=== PATIENT | male | born 1985 | race Two or more races ===

== ENCOUNTER 2019-04-13 07:38 | Observation (INO) | payer OTHER, MEDICAID ==
[~2019-04-13 07:38] MED LIST: GLYCOPYRROLATE 1 MG/5 ML VIAL ONE; ONDANSETRON HCL INJ/PF 4 MG/2 ML SDV ONE
[2019-04-13] MEDS ORDERED: ONDANSETRON HCL INJ/PF 4 MG/2 ML SDV IV ONE ×2 (09:42→12:29)
[2019-04-13] MEDS ORDERED: NORMAL SALINE 1000 ML 1,000 ML IV ONE (09:42)
[2019-04-13] MEDS ORDERED: MORPHINE SULFATE 10 MG/ML INJ IV ONE ×2 (09:42→12:29)
--- NOTE | 2019-04-13 09:53 | ER Document Report ---
Entered by KATHY HINKLE SCRIBE 04/13/19 0942 Acting as scribe for:PAVAN DAVIS MD ED Skin Rash/Insect Bite/Abscs - General Chief Complaint: Abscess Stated Complaint: BUTTOCKS/LEG PAIN Time Seen by Provider: 04/13/19 09:26 Primary Care Provider: BRODY RODRÍGUEZ FNP-C [Primary Care Provider] - Follow up as needed Mode of Arrival: Ambulatory Information source: Patient Notes: Patient is a 33-year-old male who presents to the emergency department today with complaints of pain around his rectum. Patient was seen by a local urgent care x3 days ago and was put on doxycycline for probable cellulitis. Patient states that he went on a walk on 04/07 and developed pain later that evening. Patient states "I am fat so when I do a lot of exercise, sometimes I get ingrown hairs". Patient states he thought that was all this was but his pain has become unbearable so he thinks there is something else going on. Patient reports his last meal was sometime yesterday. TRAVEL OUTSIDE OF THE [place] IN LAST 30 DAYS: No - Related Data Allergies/Adverse Reactions: No Known Allergies Allergy (Unverified 04/13/19 10:38) Past Medical History - General Information source: Patient - Social History Smoking Status: Current Every Day Smoker Cigarette use (# per day): Yes Chew tobacco use (# tins/day): No Frequency of alcohol use: Rare Drug Abuse: None Lives with: Family Family History: Reviewed & Not Pertinent Patient has suicidal ideation: No Patient has homicidal ideation: No Review of Systems - Review of Systems Constitutional: No symptoms reported EENT: No symptoms reported Cardiovascular: No symptoms reported Respiratory: No symptoms reported Gastrointestinal: No symptoms reported Genitourinary: No symptoms reported Male Genitourinary: No symptoms reported Musculoskeletal: No symptoms reported Skin: See HPI, Lesions Hematologic/Lymphatic: No symptoms reported Neurological/Psychological: No symptoms reported -: Yes All other systems reviewed and negative Physical Exam - Vital signs Vitals: Temp Pulse Resp BP Pulse Ox 98.1 F 131 H 18 107/72 97 04/13/19 07:43 04/13/19 07:43 04/13/19 07:43 04/13/19 07:43 04/13/19 07:43 - Notes Notes: Physical Exam: General: Alert, appears uncomfortable, lying on right side for comfort. HEENT: Normocephalic. Atraumatic. PERRL. Extraocular movements intact. Oropharynx clear. Neck: Supple. Non-tender. Respiratory: No respiratory distress. Clear and equal breath sounds bilaterally. Cardiovascular: Regular rate and rhythm. Abdominal: Obese. Non-tender. No distension. Normal Bowel Sounds. Back: No gross abnormalities. Perineum: The left buttock in the inferior medial aspect has a large tender swollen indurated region with some fluctuance. The inferior portion of this abscess which extends down near the groin is presently draining malodorous pus. Extremities: Moves all four extremities. Upper extremities: Normal inspection. Normal ROM. Lower extremities: Normal inspection. No edema. Normal ROM. Neurological: Normal cognition. AAOx4. Normal speech. Psychological: Normal affect. Normal Mood. Skin: Grossly normal. Course - Vital Signs Vital signs: Temp Pulse Resp BP Pulse Ox 98.1 F 131 H 12 109/80 95 04/13/19 07:43 04/13/19 07:43 04/13/19 13:00 04/13/19 12:20 04/13/19 13:00 - Laboratory Result Diagrams: 04/13/19 10:37 04/13/19 10:37 Laboratory results interpreted by me: 04/13/19 04/13/19 04/13/19 10:10 10:37 10:37 WBC 14.5 H RBC 4.07 L Hgb 12.7 L Hct 37.8 L Lymph % (Auto) 12.8 L Absolute Neuts (auto) 11.4 H Seg Neutrophils % 78.8 H Sodium 135.8 L Urine Blood SMALL H Urine Urobilinogen 4.0 H - Consults Dr. Luu Time consulted: 11:02 Consulted provider: will come to ER Discharge - Discharge Clinical Impression: Left buttock abscess Leukocytosis Qualifiers: Leukocytosis type: unspecified Qualified Code(s): D72.829 - Elevated white blood cell count, unspecified Condition: Stable Disposition: ADMITTED INPATIENT Admitting Provider: Surgicalist Unit Admitted: Surgical Floor Referrals: BRODY RODRÍGUEZ FNP-C [Primary Care Provider] - Follow up as needed [employer] Attestation: 04/13/19 13:08 I personally performed the services described in the documentation, reviewed and edited the documentation which was dictated to the scribe in my presence, and it accurately records my words and actions. I personally performed the services described in the documentation, reviewed and edited the documentation which was dictated to the scribe in my presence, and it accurately records my words and actions.
[2019-04-13 10:41] LABS: APPEARANCE,URINE CLEAR; BILIRUBIN,URINE NEGATIVE (NEGATIVE); COLOR,URINE AMBER; GLUCOSE, URINE NEGATIVE (NEGATIVE); KETONES,URINE NEGATIVE (NEGATIVE); LEUKOCYTE ESTERASE,URINE NEGATIVE (NEGATIVE); NITRITE,URINE NEGATIVE (NEGATIVE); PROTEIN,URINE NEGATIVE (NEGATIVE); URINE SPECIFIC GRAVITY 1.024
[2019-04-13 10:57] LABS: ABSOLUTE LYMPHOCYTES (AUTO) 1.8 10^3/uL (0.5-4.7); ABSOLUTE MONOCYTES (AUTO) 1.2 10^3/uL (0.1-1.4); ABSOLUTE NEUT (AUTO) 11.4 10^3/uL (1.7-8.2); BASOPHILS % (AUTO) 0.2 % (0-2); EOSINOPHILS % (AUTO) 0.1 % (0-6); HEMATOCRIT 37.8 % (37.9-51.0); HEMOGLOBIN 12.7 g/dL (13.5-17.0); LYMPHOCYTES % (AUTO) 12.8 % (13-45); MEAN CORPUSCULAR HEMOGLOBIN 31.2 pg (27.0-33.4); MEAN CORPUSCULAR HGB CONC 33.6 g/dL (32.0-36.0); MEAN CORPUSCULAR VOLUME 93 fl (80-97); MONOCYTES % (AUTO) 8.1 % (3-13); PLATELET COUNT 401 10^3/uL (150-450); RED BLOOD COUNT 4.07 10^6/uL (4.35-5.55); RED CELL DISTRIBUTION WIDTH 12.6 % (11.5-14.0); SEGMENTED NEUTROPHILS % (AUTO) 78.8 % (42-78); TOTAL CELLS COUNTED % (AUTO) 100 %; WHITE BLOOD COUNT 14.5 10^3/uL (4.0-10.5)
[2019-04-13] MEDS ORDERED: CLINDAMYCIN 600 MG/D5W RTU 600 MG/50 ML RTUPB IV ONE (11:05)
[2019-04-13 11:13] LABS: ALKALINE PHOSPHATASE 80 U/L (38-126); ANION GAP 8 (5-19); ASPARTATE AMINO TRANSFERASE 22 U/L (17-59); BILIRUBIN,DIRECT 0.2 mg/dL (0.0-0.4); BILIRUBIN,TOTAL 0.8 mg/dL (0.2-1.3); BLOOD UREA NITROGEN 15 mg/dL (7-20); CALCIUM 9.2 mg/dL (8.4-10.2); CARBON DIOXIDE 29 mmol/L (22-30); CHLORIDE 99 mmol/L (98-107); GLUCOSE 89 mg/dL (75-110); POTASSIUM 4.5 mmol/L (3.6-5.0); TOTAL PROTEIN 7.6 g/dL (6.3-8.2)
[2019-04-13] MEDS ORDERED: DEXTROSE 50%-WATER 25 GM/50 ML DISP.SYRIN IV PRN ×2 (13:43)
[2019-04-13] MEDS ORDERED: DEXTROSE 40% GEL 15 GM TUBE PO PRN ×2 (13:43)
[2019-04-13] MEDS ORDERED: GLUCAGON,HUMAN RECOMB 1 MG INJ SUBCUT PRN (13:43)
[2019-04-13] MEDS ORDERED: POTASSI CL 20 MEQ/1/2NS 1L 20 MEQ/1,000 ML RTUINJ IV PRN (13:43)
[2019-04-13] MEDS ORDERED: ONDANSETRON HCL INJ/PF 4 MG/2 ML SDV IV PRN (13:43)
--- NOTE | 2019-04-13 13:43 | PDOC H&P ---
History of Present Illness Admission Date/PCP: 04/13/19 13:13 BRODY RODRÍGUEZ, TRUNG-C Patient complains of: buttock pain, drainage History of Present Illness: VERONICA MOTA is a 33 year old malePatient i who presents to the emergency department today with complaints of pain around his rectum. Patient was seen by a local urgent care x3 days ago and was put on doxycycline for probable cellulitis. Patient states that he went on a walk on 04/07 and developed pain later that evening. Patient states "I am fat so when I do a lot of exercise, sometimes I get ingrown hairs". Patient states he thought that was all this was but his pain has become unbearable so he thinks there is something else going on. Past Surgical History Past Surgical History: Reports: None Social History Lives with: Family Smoking Status: Current Every Day Smoker Electronic Cigarette use?: No Family History Family History: Reviewed & Not Pertinent Parental Family History Reviewed: No Children Family History Reviewed: NA Sibling(s) Family History Reviewed.: NA Medication/Allergy Home Medications: No Home Medications 04/13/19 Allergies/Adverse Reactions: No Known Allergies Allergy (Unverified 04/13/19 10:38) Review of Systems Constitutional: PRESENT: chills, fatigue Eyes: ABSENT: as per HPI, visual disturbances, other Ears: ABSENT: as per HPI, hearing changes, other Nose, Mouth, and Throat: ABSENT: as per HPI, headache(s), mouth pain, sore throat, vertigo, other Breasts: ABSENT: as per HPI, other Cardiovascular: ABSENT: as per HPI, chest pain, dyspnea on exertion, edema, orthropnea, palpitations, other Respiratory: ABSENT: as per HPI, cough, dyspnea, hemoptysis, sputum, other Gastrointestinal: ABSENT: as per HPI, abdominal pain, bloating, coffee ground emesis, constipation, diarrhea, dysphagia, heartburn, hematemesis, hematochezia, melena, nausea, vomiting, other Genitourinary: ABSENT: as per HPI, difficulty urinating, dysuria, hematuria, nocturia, other Musculoskeletal: ABSENT: as per HPI, back pain, deformity, joint swelling, muscle weakness, other Integumentary: PRESENT: wounds - painfull left buttock Neurological: ABSENT: as per HPI, abnormal gait, abnormal movements, abnormal speech, confusion, convulsions, dizziness, focal weakness, frequent falls, lack of coordination, memory loss, numbness, paresthesias, restless legs, syncope, tingling, tremor(s), vertigo, weakness, other Psychiatric: ABSENT: as per HPI, anxiety, depression, hallucinations, homidical ideation, suicidal ideation, other Endocrine: ABSENT: as per HPI, cold intolerance, flushing, heat intolerance, menstrual abnormalities, polydipsia, polyphagia, polyuria, other Hematologic/Lymphatic: ABSENT: as per HPI, easy bleeding, easy bruising, lymphadenopathy, other Allergic/Immunologic: ABSENT: as per HPI, seasonal rhinorrhea, other Physical Exam Vital Signs: Temp Pulse Resp BP Pulse Ox 98.1 F 131 H 12 109/80 95 04/13/19 07:43 04/13/19 07:43 04/13/19 13:00 04/13/19 12:20 04/13/19 13:00 Intake & Output 04/12/19 04/13/19 04/14/19 06:59 06:59 06:59 Intake Total 1050 Balance 1050 General appearance: PRESENT: mild distress, morbidly obese Head exam: PRESENT: normocephalic Eye exam: PRESENT: EOMI Ear exam: PRESENT: normal external ear exam Mouth exam: PRESENT: dry mucosa Neck exam: PRESENT: full ROM Respiratory exam: PRESENT: clear to auscultation [place] Cardiovascular exam: PRESENT: RRR Pulses: PRESENT: normal radial pulses, normal femoral pulses Vascular exam: PRESENT: normal capillary refill GI/Abdominal exam: PRESENT: soft Rectal exam: PRESENT: other - large 6cm fluctulent abscess left perirectal area Musculoskeletal exam: PRESENT: ambulatory, full ROM Neurological exam: PRESENT: alert, awake, oriented to person, oriented to place Psychiatric exam: PRESENT: appropriate affect Skin exam: PRESENT: dry Results Laboratory Results: 04/13/19 10:37 04/13/19 10:37 04/13/19 04/13/19 04/13/19 10:10 10:37 10:37 WBC 14.5 H RBC 4.07 L Hgb 12.7 L Hct 37.8 L MCV 93 MCH 31.2 MCHC 33.6 RDW 12.6 Plt Count 401 Seg Neutrophils % 78.8 H Sodium 135.8 L Potassium 4.5 Chloride 99 Carbon Dioxide 29 Anion Gap 8 BUN 15 Creatinine 1.00 Est GFR ( Amer) > 60 Glucose 89 Calcium 9.2 Total Bilirubin 0.8 AST 22 Alkaline Phosphatase 80 Total Protein 7.6 Albumin 4.0 Urine Color CHITRA Urine Appearance CLEAR Urine pH 6.0 Ur Specific [place] 1.024 Urine Protein NEGATIVE Urine Glucose (UA) NEGATIVE Urine Ketones NEGATIVE Urine Blood SMALL H Urine Nitrite NEGATIVE Ur Leukocyte Esterase NEGATIVE Urine WBC (Auto) 2 Urine RBC (Auto) 3 Assessment & Plan - Plan Summary Plan Summary: large left perirectal abscess plan for surgical i and d risks and benifits discussed, including loss of continence, need for additional surgery infection, mi, stroke, pneumonia, possible he understands an agrees to proceed.
[2019-04-13] MEDS ORDERED: CEFAZOLIN 1 GM/D5W RTU 50 ML IV SCH (14:00)
[2019-04-13] MEDS: METRONIDAZOLE 500 MG/NS RTU 500 MG/100 ML RTUPB IV SCH ×2 (14:08→21:05)
[2019-04-13] MEDS: MORPHINE SULFATE 10 MG/ML INJ IV PRN (16:31)
[2019-04-13] MEDS: CEFAZOLIN SODIUM 1 GM in DEXTROSE 5%-WATER 50 ML IV SCH (17:34)
[2019-04-13] MEDS: FAMOTIDINE INJ/PF 20 MG/2 ML SDV IV SCH (21:11)
[2019-04-14] MEDS: MORPHINE SULFATE 10 MG/ML INJ IV PRN (00:23)
[2019-04-14] MEDS ORDERED: FENTANYL CITRATE INJ/PF 100 MCG/2 ML AMPUL ONE ×2 (00:26→03:08)
[2019-04-14] MEDS ORDERED: MIDAZOLAM 2 MG/2 ML INJ ONE (00:26)
[2019-04-14] MEDS ORDERED: PROPOFOL INJ 200 MG/20 ML VIAL IV ONE (00:26)
[2019-04-14] MEDS ORDERED: KETAMINE HCL INJ 500 MG/10 ML VIAL ONE (02:06)
[2019-04-14] MEDS ORDERED: PROMETHAZINE HCL INJ 25 MG/1 ML VIAL IV PRN (02:27)
[2019-04-14] MEDS ORDERED: MORPHINE SULFATE 10 MG/ML INJ IV PRN (02:27)
[2019-04-14] MEDS ORDERED: MEPERIDINE HCL/PF INJ 25 MG/1 ML DISP.SYRIN IV PRN (02:27)
[2019-04-14] MEDS ORDERED: FENTANYL CITRATE INJ/PF 100 MCG/2 ML AMPUL IV PRN ×3 (02:27)
[2019-04-14] MEDS ORDERED: DIPHENHYDRAMINE HCL 50 MG/ML VIAL IV PRN (02:27)
[2019-04-14] MEDS ORDERED: LIDOCAINE 1%/EPINEPHRINE INJ 20 ML VIAL ONE (02:37)
--- NOTE | 2019-04-14 03:09 | Operative Report ---
Nonrecallable Operative Report DATE OF SURGERY: 04/14/19 PREOPERATIVE DIAGNOSIS: perirectal abscess POSTOPERATIVE DIAGNOSIS: perirectal abscess OPERATION: incision and drainage of perirectal abscess SURGEON: SHAWANDA MCCALL ANESTHESIA: GA COMPLICATIONS: none ESTIMATED BLOOD LOSS: 25cc INTRAOPERATIVE FINDINGS: see note PROCEDURE: Patient was brought to the operating room and awake alert stable condition placed in the operative table supine position given general anesthesia. He was placed up in a lithotomy position and the perineum was prepped and draped in usual sterile manner for the procedure. After appropriate timeout site verification a curvilinear incision was made in the right buttock lateral to the rectum below the perineal body. Usually digital dissection broke up the loculations in the rectal fat and ischial fat with blunt dissection there is a moderate to large amount of pus exuded from the wound however there is no distinct abscess cavity. After digital dissection we then irrigated the wound with normal saline suctioned dry and then placed to form gauze packing. Completed the procedure Sterile dressing was applied the patient was placed back onto the recovery room [facility] in stable condition Estimated blood loss was 25 cc sponge needle counts were correct x2
[2019-04-14] MEDS ORDERED: OXYCODONE-ACETAMINOPHEN 5-325 MG TABLET PO PRN (03:11)
[2019-04-14] MEDS: CEFAZOLIN SODIUM 1 GM in DEXTROSE 5%-WATER 50 ML IV SCH ×3 (04:02→17:30)
[2019-04-14] MEDS: METRONIDAZOLE 500 MG/NS RTU 500 MG/100 ML RTUPB IV SCH ×3 (05:52→21:16)
[2019-04-14] MEDS ORDERED: INFLUENZA QUAD (6MOS+) 2019-20 VAC 0.5 ML SYR IM ONE (08:00)
[2019-04-14] MEDS: FAMOTIDINE INJ/PF 20 MG/2 ML SDV IV SCH ×2 (09:09→21:14)
[2019-04-14] MEDS: KETOROLAC TROMETHAMINE INJ/PF 30 MG/1 ML SDV IV SCH ×2 (13:39→21:14)
--- NOTE | 2019-04-14 17:39 | PDOC PROGRESS REPORT ---
Subjective Progress Note for:: 04/14/19 Reason For Visit: PERIRECTAL ABSCESS Physical Exam Vital Signs: Temp Pulse Resp BP Pulse Ox 98.5 F 96 16 120/53 L 99 04/14/19 08:50 04/14/19 08:50 04/14/19 08:50 04/14/19 08:50 04/14/19 08:50 Intake & Output 04/13/19 04/14/19 04/15/19 06:59 06:59 06:59 Intake Total 800 1350 462 Output Total 750 300 Balance 800 600 162 Weight 122.1 kg Results Laboratory Results: 04/13/19 10:37 04/13/19 10:37 Assessment & Plan - Diagnosis (1) Perirectal abscess Is this a current diagnosis for this admission?: Yes - Time Time Spent with patient: Less than 15 minutes - Plan Summary Plan Summary: This is a 33-year-old male status post perirectal abscess incision and drainage early this morning. The patient reports that his pain is much improved. He denies fevers or chills. I plan to remove the packing tomorrow. I have encouraged the patient to rest today. Continue antibiotics. Further recommendations and interventions to be determined based on the patient's clinical course.
[2019-04-15] MEDS: CEFAZOLIN SODIUM 1 GM in DEXTROSE 5%-WATER 50 ML IV SCH ×3 (02:35→17:20)
[2019-04-15] MEDS: METRONIDAZOLE 500 MG/NS RTU 500 MG/100 ML RTUPB IV SCH ×3 (05:12→22:11)
[2019-04-15] MEDS: KETOROLAC TROMETHAMINE INJ/PF 30 MG/1 ML SDV IV SCH ×3 (05:12→22:11)
[2019-04-15 05:29] LABS: ABSOLUTE BASOPHILS # (AUTO) 0.1 10^3/uL (0.0-0.2); ABSOLUTE EOSINOPHILS # (AUTO) 0.1 10^3/uL (0.0-0.6); ABSOLUTE LYMPHOCYTES (AUTO) 1.9 10^3/uL (0.5-4.7); ABSOLUTE NEUT (AUTO) 6.1 10^3/uL (1.7-8.2); BASOPHILS % (AUTO) 0.9 % (0-2); EOSINOPHILS % (AUTO) 0.7 % (0-6); HEMATOCRIT 34.3 % (37.9-51.0); HEMOGLOBIN 11.7 g/dL (13.5-17.0); LYMPHOCYTES % (AUTO) 20.5 % (13-45); MEAN CORPUSCULAR HEMOGLOBIN 31.1 pg (27.0-33.4); MEAN CORPUSCULAR HGB CONC 34.1 g/dL (32.0-36.0); MEAN CORPUSCULAR VOLUME 91 fl (80-97); PLATELET COUNT 384 10^3/uL (150-450); RED BLOOD COUNT 3.76 10^6/uL (4.35-5.55); RED CELL DISTRIBUTION WIDTH 12.6 % (11.5-14.0); SEGMENTED NEUTROPHILS % (AUTO) 66.9 % (42-78); TOTAL CELLS COUNTED % (AUTO) 100 %; WHITE BLOOD COUNT 9.2 10^3/uL (4.0-10.5)
[2019-04-15 05:45] LABS: ANION GAP 8 (5-19); BLOOD UREA NITROGEN 17 mg/dL (7-20); CARBON DIOXIDE 27 mmol/L (22-30); CHLORIDE 103 mmol/L (98-107); GLUCOSE 103 mg/dL (75-110); POTASSIUM 4.4 mmol/L (3.6-5.0)
[2019-04-15] MEDS: FAMOTIDINE INJ/PF 20 MG/2 ML SDV IV SCH ×2 (09:51→22:11)
[2019-04-15] MEDS: MORPHINE SULFATE 10 MG/ML INJ IV PRN (21:00)
[2019-04-15] MEDS ORDERED: DOCUSATE SODIUM 100 MG CAPSULE PO ONE (22:48)
--- NOTE | 2019-04-15 22:48 | PDOC PROGRESS REPORT ---
Subjective Progress Note for:: 04/15/19 Reason For Visit: PERIRECTAL ABSCESS Physical Exam Vital Signs: Temp Pulse Resp BP Pulse Ox 98.2 F 79 17 108/63 99 04/15/19 20:00 04/15/19 20:00 04/15/19 20:00 04/15/19 20:00 04/15/19 20:00 Intake & Output 04/14/19 04/15/19 04/16/19 06:59 06:59 06:59 Intake Total 1450 2868 1160 Output Total 750 1700 Balance 700 1168 1160 Weight 122.1 kg 116.9 kg Results Laboratory Results: 04/15/19 05:11 04/15/19 05:11 04/15/19 04/15/19 05:11 05:11 WBC 9.2 RBC 3.76 L Hgb 11.7 L Hct 34.3 L MCV 91 MCH 31.1 MCHC 34.1 RDW 12.6 Plt Count 384 Seg Neutrophils % 66.9 Sodium 138.3 Potassium 4.4 Chloride 103 Carbon Dioxide 27 Anion Gap 8 BUN 17 Creatinine 0.93 Est GFR ( Amer) > 60 Glucose 103 Calcium 9.0 04/13/19 12:19 Buttocks - Abscess Gram Stain - Final Assessment & Plan - Diagnosis (1) Perirectal abscess Is this a current diagnosis for this admission?: Yes - Time Time Spent with patient: Less than 15 minutes - Plan Summary Plan Summary: This is a 33-year-old male status post incision and drainage of a perirectal abscess. The patient reports that his pain is much improved. He denies fevers or chills. Packing was removed by me today. I have encouraged the patient to ambulate in the hallway. Continue antibiotics. Okay to shower. Plan for discharge tomorrow.
[2019-04-16] MEDS: CEFAZOLIN SODIUM 1 GM in DEXTROSE 5%-WATER 50 ML IV SCH (01:11)
[2019-04-16] MEDS ORDERED: DOCUSATE SODIUM 100 MG CAPSULE PO ONE (02:00)
[2019-04-16] MEDS: KETOROLAC TROMETHAMINE INJ/PF 30 MG/1 ML SDV IV SCH (05:50)
[2019-04-16] MEDS: METRONIDAZOLE 500 MG/NS RTU 500 MG/100 ML RTUPB IV SCH (05:51)
--- NOTE | 2019-04-16 07:40 | PDOC DISCHARGE SUMMARY ---
General - Admit/Disc Date/PCP Admission Date/Primary Care Provider: 04/13/19 13:13 TRUNG STEIN-Reyes Discharge Date: 04/16/19 - Discharge Diagnosis Final Diagnosis: Perirectal abscess - Assessment Summary: This is a 33-year-old male who presented to the hospital with a painful, swollen perirectal abscess. The patient was taken to the operating room for definitive surgical care. On postoperative day #1, the packing was removed. Patient continued to have significant amounts of pain, however his fevers, chills, and white blood cell count normalized. By postoperative day #2, the patient was doing well and is fit for discharge. - Additional Information Resuscitation Status: Full Code Discharge Diet: As Tolerated Discharge Activity: Activity As Tolerated, Balance Activity w/Rest Referrals: [facility] [Provider Group] Home Medications: No Home Medications 04/13/19 Additional Information: Discharge home. Diet as tolerated. Activity: Nonstrenuous. Follow-up with [facility] in 7 to 10 days. Warm sits baths twice daily and after bowel movements. Colace 200 mg p.o. twice daily. Ibuprofen 800 mg p.o. 3 times daily with meals. May 10/325 mg p.o. every 4 hours as needed for pain. Lidocaine 5% ointment to rectum 3 times daily. Flagyl 500 mg p.o. 3 times daily. Fiber supplement twice daily. Change dressing twice daily and as needed. History of Present Illiness History of Present Illness: VERONICA MOTA is a 33 year old male Physical Exam Vital Signs: Temp Pulse Resp BP Pulse Ox 97.4 F 72 17 106/65 100 04/16/19 03:11 04/16/19 03:11 04/16/19 03:11 04/16/19 03:11 04/16/19 03:11 Intake & Output 04/15/19 04/16/19 04/17/19 06:59 06:59 06:59 Intake Total 2868 1310 Output Total 1700 350 Balance 1168 960 Weight 116.9 kg 120.6 kg Results Laboratory Results: WBC 9.2 10^3/uL (4.0-10.5) 04/15/19 05:11 RBC 3.76 10^6/uL (4.35-5.55) L 04/15/19 05:11 Hgb 11.7 g/dL (13.5-17.0) L 04/15/19 05:11 Hct 34.3 % (37.9-51.0) L 04/15/19 05:11 MCV 91 fl (80-97) 04/15/19 05:11 MCH 31.1 pg (27.0-33.4) 04/15/19 05:11 MCHC 34.1 g/dL (32.0-36.0) 04/15/19 05:11 RDW 12.6 % (11.5-14.0) 04/15/19 05:11 Plt Count 384 10^3/uL (150-450) 04/15/19 05:11 Lymph % (Auto) 20.5 % (13-45) 04/15/19 05:11 [place] % (Auto) 11.0 % (3-13) 04/15/19 05:11 Eos % (Auto) 0.7 % (0-6) 04/15/19 05:11 Baso % (Auto) 0.9 % (0-2) 04/15/19 05:11 Absolute Neuts (auto) 6.1 10^3/uL (1.7-8.2) 04/15/19 05:11 Absolute Lymphs (auto) 1.9 10^3/uL (0.5-4.7) 04/15/19 05:11 Absolute Monos (auto) 1.0 10^3/uL (0.1-1.4) 04/15/19 05:11 Absolute Eos (auto) 0.1 10^3/uL (0.0-0.6) 04/15/19 05:11 Absolute Basos (auto) 0.1 10^3/uL (0.0-0.2) 04/15/19 05:11 Seg Neutrophils % 66.9 % (42-78) 04/15/19 05:11 Sodium 138.3 mmol/L (137-145) 04/15/19 05:11 Potassium 4.4 mmol/L (3.6-5.0) 04/15/19 05:11 Chloride 103 mmol/L (98-107) 04/15/19 05:11 Carbon Dioxide 27 mmol/L (22-30) 04/15/19 05:11 Anion Gap 8 (5-19) 04/15/19 05:11 BUN 17 mg/dL (7-20) 04/15/19 05:11 Creatinine 0.93 mg/dL (0.52-1.25) 04/15/19 05:11 Est GFR ( Amer) > 60 (>60) 04/15/19 05:11 Est GFR (MDRD) Non-Af > 60 (>60) 04/15/19 05:11 Glucose 103 mg/dL (75-110) 04/15/19 05:11 Calcium 9.0 mg/dL (8.4-10.2) 04/15/19 05:11 Total Bilirubin 0.8 mg/dL (0.2-1.3) 04/13/19 10:37 Direct Bilirubin 0.2 mg/dL (0.0-0.4) 04/13/19 10:37 Neonat Total Bilirubin Not Reportable 04/13/19 10:37 Neonat Direct Bilirubin Not Reportable 04/13/19 10:37 Neonat Indirect Bili Not Reportable 04/13/19 10:37 AST 22 U/L (17-59) 04/13/19 10:37 ALT 28 U/L (<50) 04/13/19 10:37 Alkaline Phosphatase 80 U/L (38-126) 04/13/19 10:37 Total Protein 7.6 g/dL (6.3-8.2) 04/13/19 10:37 Albumin 4.0 g/dL (3.5-5.0) 04/13/19 10:37 Urine Color CHITRA 04/13/19 10:10 Urine Appearance CLEAR 04/13/19 10:10 Urine pH 6.0 (5.0-9.0) 04/13/19 10:10 Ur Specific [place] 1.024 04/13/19 10:10 Urine Protein NEGATIVE mg/dL (NEGATIVE) 04/13/19 10:10 Urine Glucose (UA) NEGATIVE mg/dL (NEGATIVE) 04/13/19 10:10 Urine Ketones NEGATIVE mg/dL (NEGATIVE) 04/13/19 10:10 Urine Blood SMALL (NEGATIVE) H 04/13/19 10:10 Urine Nitrite NEGATIVE (NEGATIVE) 04/13/19 10:10 Urine Bilirubin NEGATIVE (NEGATIVE) 04/13/19 10:10 Urine Urobilinogen 4.0 mg/dL (<2.0) H 04/13/19 10:10 Ur Leukocyte Esterase NEGATIVE (NEGATIVE) 04/13/19 10:10 Urine WBC (Auto) 2 /HPF 04/13/19 10:10 Urine RBC (Auto) 3 /HPF 04/13/19 10:10 Urine Mucus (Auto) FEW /LPF 04/13/19 10:10 Urine Ascorbic Acid NEGATIVE (NEGATIVE) 04/13/19 10:10
[2019-04-16 09:59] VITALS: BP 108/63
[2019-04-16] MEDS ORDERED: DOCUSATE SODIUM 100 MG CAPSULE PO SCH (10:00)
== END 2019-04-16 10:38 | disposition home or self-care (01) ==
LOC: ER 07:38 → INTOOBSV 13:13 → EH 13:13 → 4N 16:47
PROVIDERS: ATTEND Surgery
PROC: 0D9P0ZZ Drainage of Rectum, Open Approach (ICD-10-PCS; principal; 2019-04-14)
DX: K61.1 Rectal abscess (principal); F17.210 Nicotine dependence, cigarettes, uncomplicated; R50.9 Fever, unspecified; R53.83 Other fatigue; D72.829 Elevated white blood cell count, unspecified; E66.01 Morbid (severe) obesity due to excess calories
CPT/HCPCS: 96376; 99284; 96361; 96375; 96365; 36415 ×2; 87070; 87205; 85025 ×2; 87075; 87077; 80048; 80053; 81001; 87186; 00902; 46040; G0378 ×5; J2250; J0690 ×4; J3480; J3010; J3490 ×7; J1885 ×3; J2270 ×3; J2405 ×2; J7060 ×4; J7030; J2704; S0028 ×3; 902